=== PATIENT | male | born 1990 | race Caucasian/White ===

== ENCOUNTER 2019-12-23 02:57 | Emergency (ER) | payer BC ==
[~2019-12-23] VITALS: Ht 175.3 cm; Wt 92.1 kg
[2019-12-23] MEDS ORDERED: PROAIR HFA8.5 GM (03:06)
[2019-12-23] MEDS ORDERED: SYMBICORT (03:06)
[2019-12-23 03:42] LABS: URINE BILIRUBIN NEGATIVE (Negative); URINE BLOOD NEGATIVE (Negative); URINE CLARITY CLEAR; URINE COLOR STRAW; URINE GLUCOSE-RANDOM NEGATIVE (Negative); URINE KETONES NEGATIVE (Negative); URINE LEUKOCYTES-REFLEX NEGATIVE (Negative); URINE NITRITE-REFLEX NEGATIVE (Negative); URINE PROTEIN NEGATIVE (Negative); URINE UROBILINOGEN 0.2 E.U./dl (0.2-1.0)
[2019-12-23 03:42] LABS: ABSOLUTE EOSINOPHILS 0.1 thou/uL (0.0-0.7); ABSOLUTE LYMPHOCYTES 1.7 thou/uL (0.8-5.3); ABSOLUTE MONOCYTES 0.4 thou/uL (0.0-1.2); ABSOLUTE NEUTROPHILS 1.8 thou/uL (1.6-8.1); BASOPHILS 0.7 %; EOSINOPHILS 2.1 %; HEMATOCRIT 45.1 % (42.0-52.0); HEMOGLOBIN 16.6 gm/dL (14.0-18.0); LYMPHOCYTES 43.1 %; MCH 31.4 pg (26.0-34.0); MCHC 36.8 g/dL (28.0-37.0); MCV 85.1 fL (80.0-100.0); MONOCYTES 8.9 %; MPV 8.2 fl. (7.2-11.1); NUCLEATED RBCS 0 /100WBC; PLATELET COUNT* 218 thou/uL (150-400); POLYS 45.2 %; RBC 5.29 mil/uL (4.50-6.00); RDW-CV 13.4 % (10.5-14.5)
[2019-12-23 04:01] LABS: ALBUMIN 4.2 g/dL (3.4-5.0); CALCIUM 8.8 mg/dL (8.5-10.1); TOTAL BILIRUBIN 0.7 mg/dL (<0.1-1.0); TOTAL PROTEIN 7.7 g/dL (6.4-8.2)
[2019-12-23 04:03] LABS: POTASSIUM 2.9 mmol/L (3.5-5.1)
[2019-12-23] MEDS ORDERED: KLOR-CON 1010 MEQ PO (04:20)
[2019-12-23 05:26] LABS: AMP/METHAMP Negative (Negative); BARBITURATES Negative (Negative); BENZODIAZEPINES Negative (Negative); COCAINE Negative (Negative); METHADONE Negative (Negative); OPIATES Negative (Negative); PCP Negative (Negative); THC Negative (Negative)
[2019-12-23 05:35] VITALS: BP 133/82
--- NOTE | 2019-12-24 15:36 | EKG ---
[place] [address] ELECTROCARDIOGRAM REPORT Name: ERIS ACUNA Room: [facility]#: [id number] Admission: 12/23/19 Attend Phys: Discharge: 12/23/19 Date of : 89 Date of Service: 12/23/19 0355 Report #: [id number] THIS REPORT FOR: //name// [facility] ED Test Date: 2019-12-23 Test Time: 03:55:43 Pat Name: ERIS ACUNA Department: Room: Gender: Pmo Analyst: : 1990 Requested By: Brianne Mccain Order Number: [id number] MD: Richard Erickson Measurements Intervals [place] Rate: 75 P: 15 OR: 153 QRS: 42 QRSD: 110 T: -18 QT: 363 QTc: 406 Interpretive Statements Sinus rhythm Ventricular premature complex Nondiagnostic inferior Q waves Borderline T abnormalities, inferior and anterolateral leads No previous ECG available for comparison Electronically Signed On 12-24-2019 15:35:52 CDT by Richard Erickson [email or web address] <ELECTRONICALLY SIGNED> By: Richard Erickson MD, [facility] 12/24/19 1535 0355 0355 Richard Erickson MD, [facility] /EPI
== END 2019-12-23 05:35 | disposition home or self-care (01) ==
LOC: M.ERS 02:57
PROVIDERS: Personal Emergency Response Attendant
DX: E87.6 Hypokalemia (principal); M54.9 Dorsalgia, unspecified; J45.909 Unspecified asthma, uncomplicated; R10.32 Left lower quadrant pain; Z71.1 Person with feared health complaint in whom no diagnosis is made; Z88.1 Allergy status to other antibiotic agents